=== PATIENT | female | born 1990 | race American Indian/Alaskan Native ===

== ENCOUNTER 2018-04-27 21:19 | Emergency (ER) | payer OTHER, MEDICAID ==
[2018-04-27] MEDS ORDERED: MOTRIN PO ONE (22:50)
[2018-04-27 23:58] LABS: HCG Qualitative,Urine Positive (Negative)
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
[2018-04-28 01:11] VITALS: BP 110/74
== END 2018-04-28 01:10 | disposition home or self-care (01) ==
LOC: ED 21:19
DX: O9A.219 Injury, poisoning and certain other consequences of external causes complicating pregnancy, unspecified trimester (principal); S39.012A Strain of muscle, fascia and tendon of lower back, initial encounter; Z3A.00 Weeks of gestation of pregnancy not specified; V89.2XXA Person injured in unspecified motor-vehicle accident, traffic, initial encounter; Y93.89 Activity, other specified; Y99.8 Other external cause status; Y92.410 Unspecified street and highway as the place of occurrence of the external cause
CPT/HCPCS: 81025; 99283

== ENCOUNTER 2018-05-08 19:51 | Emergency (ER) | payer MEDICAID, OTHER | END 2018-05-08 21:11 | disposition left against medical advice (07) | LOC: ED 19:51 | DX: M54.9 Dorsalgia, unspecified (principal); Z53.21 Procedure and treatment not carried out due to patient leaving prior to being seen by health care provider ==

== ENCOUNTER 2018-06-24 15:05 | Emergency (ER) | payer MEDICAID, OTHER ==
--- NOTE | 2018-06-24 16:48 | Emergency Department Report ---
ED Syncope HPI - General Chief Complaint: Syncope Stated Complaint: SYNCOPE Time Seen by Provider: 06/24/18 15:24 Source: patient, EMS - History of Present Illness Initial Comments: Ms. Mina is a 28 yo female who is currently 13 weeks who presents with syncopal episode. 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 She went to bathroom and had syncopal episode. Discovered by employee. She denies chest pain or headache. She just feels dizzy. BY 55 on sceen. Given oral glucose. +n/v at the scene given zofran Patient has been diagnosed with prediabetes. Receives care at [facility]. Timing/Prior Episodes: no prior history, single episode today Precipitating Factors: Positive: lightheadedness Context: standing Loss of Consciousness: brief (seconds) Current Symptoms: lightheadedness - Related Data Allergies/Adverse Reactions: Allergies No Known Allergies Allergy (Unverified 04/28/18 01:09) Home Medications: Ambulatory Orders Acetaminophen 500 mg PO Q8H PRN #30 tablet 04/28/18 Cyclobenzaprine [Flexeril] 10 mg PO QHS PRN #10 tablet 04/28/18 Metoclopramide [Reglan] 10 mg PO BID PRN #60 tab 04/28/18 21/Iron Fu/Folic Acid [ Complete Caplet] 1 each PO DAILY #30 tablet 04/28/18 ED Review of Systems ROS: Stated complaint: SYNCOPE Other details as noted in HPI Comment: All other systems reviewed and negative Constitutional: denies: fever, malaise Respiratory: denies: cough Cardiovascular: denies: chest pain ED Past Medical Hx - Past Medical History Previous Medical History?: No Additional medical history: miscarriage x 2 - Surgical History Additional Surgical History: c-sect X 2 - Social History Smoking Status: Never Smoker Substance Use Type: None - Medications Home Medications: Home Medications Medication Instructions Recorded Confirmed Last Taken Type Acetaminophen 500 mg PO Q8H PRN #30 tablet 04/28/18 Unknown Rx Cyclobenzaprine [Flexeril] 10 mg PO QHS PRN #10 tablet 04/28/18 Unknown Rx Metoclopramide [Reglan] 10 mg PO BID PRN #60 tab 04/28/18 Unknown Rx 21/Iron Fu/Folic Acid 1 each PO DAILY #30 tablet 04/28/18 Unknown Rx [ Complete Caplet] ED Physical Exam - General Limitations: No Limitations General appearance: alert, in no apparent distress - Head Head exam: Present: atraumatic, normocephalic - Eye Eye exam: Present: normal appearance - ENT ENT exam: Present: mucous membranes moist - Neck Neck exam: Present: normal inspection. Absent: tenderness, meningismus - Respiratory Respiratory exam: Present: normal lung sounds bilaterally. Absent: respiratory distress, wheezes, rales, rhonchi - Cardiovascular Cardiovascular Exam: Present: regular rate, normal rhythm, normal heart sounds. Absent: bradycardia, tachycardia, systolic murmur, diastolic murmur, rubs, gallop - GI/Abdominal GI/Abdominal exam: Present: soft, normal bowel sounds. Absent: distended, tenderness, guarding, rebound - Extremities Exam Extremities exam: Present: normal inspection - Back Exam Back exam: Present: normal inspection - Neurological Exam Neurological exam: Present: alert, oriented X3 - Psychiatric Psychiatric exam: Present: normal affect, normal mood - Skin Skin exam: Present: warm, dry, intact, normal color. Absent: rash ED Course Vital Signs 06/24/18 17:00 Respiratory 18 Rate O2 Sat by Pulse 100 Oximetry ED Medical Decision Making - Medical Decision Making Vasovagal syncope complicated by hypoglycemia and . Patient informed me that she is required to eat every 3-4 hours. Else, she becomes ill. She ate in the ED. Dc'd home. Do not suspect seizure, PE or arrhythmia. Patient only had lightheadedness. Critical care attestation.: If time is entered above; I have spent that time in minutes in the direct care of this critically ill patient, excluding procedure time. ED Disposition Clinical Impression: Vasovagal syncope, Hypoglycemia, Disposition: DC-01 TO HOME OR SELFCARE Is pt being admited?: No Does the pt Need Aspirin: No Condition: Stable Instructions: Syncope (ED), Non-diabetic Hypoglycemia (ED) Time of Disposition: 19:10
[2018-06-24] MEDS ORDERED: D50W (25GM) Syringe IV ONE (17:00)
[2018-06-24 19:30] VITALS: BP 105/54
== END 2018-06-24 19:29 | disposition home or self-care (01) ==
LOC: ED 15:05
DX: O99.281 Endocrine, nutritional and metabolic diseases complicating pregnancy, first trimester (principal); E16.2 Hypoglycemia, unspecified; R55 Syncope and collapse; Z3A.13 13 weeks gestation of pregnancy
CPT/HCPCS: 82962; 96374

== ENCOUNTER 2018-07-03 09:56 | Emergency (ER) | payer MEDICAID ==
[2018-07-03 11:06] LABS: Basophils % (Auto) 0.3 % (0.0-1.8); Eosinophils # (Auto) 0.1 K/mm3 (0.0-0.4); Eosinophils % (Auto) 0.8 % (0.0-4.3); Lymphocytes % (Auto) 19.7 % (13.4-35.0); Mean Corpuscular HGB Conc 33 % (30-34); Mean Corpuscular Hemoglobin 26 pg (28-32); Mean Corpuscular Volume 80 fl (79-97); Monocytes # (Auto) 1.3 K/mm3 (0.0-0.8); Monocytes % (Auto) 12.9 % (0.0-7.3); Platelet Count 320 K/mm3 (140-440); Red Blood Count 4.62 M/mm3 (3.65-5.03); Red Cell Distribution Width 16.7 % (13.2-15.2)
[2018-07-03 11:16] LABS: INR 0.96 (0.87-1.13)
[2018-07-03 11:22] LABS: BUN/Creatinine Ratio 12; Blood Urea Nitrogen 6 mg/dL (7-17); Hemolysis Index 8
[2018-07-03] MEDS ORDERED: K-DUR PO ONE (11:26)
[2018-07-03] MEDS ORDERED: ZOFRAN IV ONE (11:26)
[2018-07-03] MEDS ORDERED: D5NS 1,000 ML IV SCH ×2 (12:00→15:00)
--- NOTE | 2018-07-03 15:22 | Cat Scan Report ---
CT HEAD WITHOUT CONTRAST: HISTORY: Headache, syncope, generalized weakness. TECHNIQUE: Sequential 2.5mm CT images. COMPARISON: none. FINDINGS: Cerebral Parenchyma: Within normal limits. Cerebellum: Within normal limits. Brainstem: Within normal limits. Ventricles: Normal. Sella: Normal. Extra-axial spaces: Normal. Basal Cisterns: Normal. Intracranial Hemorrhage: None. Midline Shift: None. Calvarium: Normal. Sinuses: Normal. Mastoid Air Cells: Normal. Visualized Orbits: Normal. IMPRESSION: Cranial CT scan within normal limits.
--- NOTE | 2018-07-03 15:24 | Cat Scan Report ---
CTA CHEST: HISTORY: Headache, syncope, generalized weakness, palpitations. COMPARISON: none. TECHNIQUE: Helical CT in 1.25mm intervals following IV contrast. Pulmonary embolus protocol. Sagittal and coronal reformatted images. Rotational MIP images. FINDINGS: Contrast bolus is satisfactory. No pulmonary embolus is identified. Thyroid gland: Normal. Tracheobronchial tree: Normal. Esophagus: Normal. Heart: Normal. Pericardium: Normal. Mediastinum: Normal. Lung Martin: normal. Pleural Spaces: Normal. Musculoskeletal: Normal. IMPRESSION: No evidence for pulmonary embolus. Unremarkable CT chest with contrast.
--- NOTE | 2018-07-03 16:18 | Emergency Department Report ---
ED Syncope HPI - General Chief Complaint: Syncope Stated Complaint: SYNCOPY Time Seen by Provider: 07/03/18 10:47 Source: patient Exam Limitations: no limitations - History of Present Illness Initial Comments: 28-year-old female currently 16 weeks with a past medical history of hypertension (during not currently on meds) gestational diabetes (not currently with this ) presents to the hospital complains of syncopal episode. Patient was here 3 days ago for the same. Patient was at work when episode happened. She drives a special needs van. She was going into the office tell her boss that she didn't feel well. She was lightheaded, had blurred vision, hot all over, vomited once, then had a syncopal episode. She says she had preceding palpitations and her hands were shaking. She assumed her sugar was dropping and ate [employer] without improvement. She states she has been eating small meals throughout the day and drinking fluids. She currently complains of a frontal moderate headache. She denies chest pain, shortness of breath, leg edema, calf tenderness. 3 days ago syncopal episode presumed to be due to hypoglycemia. PT states she is RH neg and denies any current vag bleeding. - Related Data Allergies/Adverse Reactions: Allergies No Known Allergies Allergy (Unverified 04/28/18 01:09) Home Medications: Ambulatory Orders Acetaminophen 500 mg PO Q8H PRN #30 tablet 04/28/18 Cyclobenzaprine [Flexeril] 10 mg PO QHS PRN #10 tablet 04/28/18 Metoclopramide [Reglan] 10 mg PO BID PRN #60 tab 04/28/18 21/Iron Fu/Folic Acid [ Complete Caplet] 1 each PO DAILY #30 tablet 04/28/18 Meclizine [Antivert] 25 mg PO TID PRN #30 tablet 07/03/18 ED Review of Systems ROS: Stated complaint: SYNCOPY Other details as noted in HPI Comment: All other systems reviewed and negative ED Past Medical Hx - Past Medical History Previous Medical History?: Yes Hx Hypertension: Yes Hx Diabetes: Yes (gestational) Additional medical history: miscarriage x 2 - Surgical History Additional Surgical History: c-sect X 2 - Social History Smoking Status: Never Smoker - Medications Home Medications: Home Medications Medication Instructions Recorded Confirmed Last Taken Type Acetaminophen 500 mg PO Q8H PRN #30 tablet 04/28/18 Unknown Rx Cyclobenzaprine [Flexeril] 10 mg PO QHS PRN #10 tablet 04/28/18 Unknown Rx Metoclopramide [Reglan] 10 mg PO BID PRN #60 tab 04/28/18 Unknown Rx 21/Iron Fu/Folic Acid 1 each PO DAILY #30 tablet 04/28/18 Unknown Rx [ Complete Caplet] Meclizine [Antivert] 25 mg PO TID PRN #30 tablet 07/03/18 Unknown Rx ED Physical Exam - General Limitations: Other - Other Other exam information: General: No limitations, patient is alert in no acute distress Head exam: Atraumatic, normocephalic Eyes exam: Normal appearance, pupils equal reactive to light, extraocular movements intact ENT: Moist mucous membrane, normal oropharynx Neck exam: Normal inspection, full range of motion, no meningismus nontender Respiratory exam: Clear to auscultation bilateral, no wheezes, rales, crackles Cardiovascular: Normal rate and rhythm, normal heart sounds Abdomen: Soft, nondistended, and nontender, with normal bowel sounds, no rebound, or guarding Extremity: Full range of motion normal inspection no deformity, no calf tenderness or edema Back: Normal Inspection, full range of motion, no tenderness Neurologic: Alert, oriented x3, cranial nerves intact, no motor or sensory deficit Psychiatric: normal affect, normal mood Skin: Warm, dry, intact ED Course Vital Signs 07/03/18 07/03/18 10:07 19:05 Temperature 98 F 98.9 F Pulse Rate 109 H 80 Respiratory 18 18 Rate Blood Pressure 124/74 Blood Pressure 98/54 [Left] O2 Sat by Pulse 100 98 Oximetry - Reevaluation(s) Reevaluation #1: 07/03/18 18:58 Patient complained of vertigo symptoms during ED stay and states he has had them for several days. She had episode of vertigo and vomiting while lying supine in CAT scan. Symptoms exacerbated when lying flat and moving her eyes and head in certain positions. Symptoms improved with meclizine. ED Medical Decision Making - Lab Data Result diagrams: 07/03/18 10:52 07/03/18 10:52 Lab Results 07/03/18 07/03/18 07/03/18 Range/Units 10:52 10:52 10:52 WBC 10.4 (4.5-11.0) K/mm3 RBC 4.62 (3.65-5.03) M/mm3 Hgb 12.0 (10.1-14.3) gm/dl Hct 37.0 (30.3-42.9) % MCV 80 (79-97) fl MCH 26 L (28-32) pg MCHC 33 (30-34) % RDW 16.7 H (13.2-15.2) % Plt Count 320 (140-440) K/mm3 Lymph % (Auto) 19.7 (13.4-35.0) % [place] % (Auto) 12.9 H (0.0-7.3) % Eos % (Auto) 0.8 (0.0-4.3) % Baso % (Auto) 0.3 (0.0-1.8) % Lymph # 2.0 (1.2-5.4) K/mm3 Hickman # 1.3 H (0.0-0.8) K/mm3 Eos # 0.1 (0.0-0.4) K/mm3 Baso # 0.0 (0.0-0.1) K/mm3 Seg Neutrophils % 66.3 (40.0-70.0) % Seg Neutrophils # 6.9 (1.8-7.7) K/mm3 PT 13.3 (12.2-14.9) Sec. INR 0.96 (0.87-1.13) D-Dimer 448.87 H (0-234) ng/mlDDU Sodium 136 L (137-145) mmol/L Potassium 3.5 L (3.6-5.0) mmol/L Chloride 102.9 (98-107) mmol/L Carbon Dioxide 21 L (22-30) mmol/L Anion Gap 16 mmol/L BUN 6 L (7-17) mg/dL Creatinine 0.5 L (0.7-1.2) mg/dL Estimated GFR > 60 ml/min BUN/Creatinine Ratio 12 % Glucose 90 (65-100) mg/dL Calcium 9.0 (8.4-10.2) mg/dL Urine Color (Yellow) Urine Turbidity (Clear) Urine pH (5.0-7.0) Ur Specific [place] (1.003-1.030) Urine Protein (Negative) mg/dL Urine Glucose (UA) (Negative) mg/dL Urine Ketones (Negative) mg/dL Urine Blood (Negative) Urine Nitrite (Negative) Urine Bilirubin (Negative) Urine Urobilinogen (<2.0) mg/dL Ur Leukocyte Esterase (Negative) Urine WBC (Auto) (0.0-6.0) /HPF Urine RBC (Auto) (0.0-6.0) /HPF U Epithel Cells (Auto) (0-13.0) /HPF Urine Mucus /HPF 07/03/18 Range/Units 16:05 WBC (4.5-11.0) K/mm3 RBC (3.65-5.03) M/mm3 Hgb (10.1-14.3) gm/dl Hct (30.3-42.9) % MCV (79-97) fl MCH (28-32) pg MCHC (30-34) % RDW (13.2-15.2) % Plt Count (140-440) K/mm3 Lymph % (Auto) (13.4-35.0) % [place] % (Auto) (0.0-7.3) % Eos % (Auto) (0.0-4.3) % Baso % (Auto) (0.0-1.8) % Lymph # (1.2-5.4) K/mm3 [place] # (0.0-0.8) K/mm3 Eos # (0.0-0.4) K/mm3 Baso # (0.0-0.1) K/mm3 Seg Neutrophils % (40.0-70.0) % Seg Neutrophils # (1.8-7.7) K/mm3 PT (12.2-14.9) Sec. INR (0.87-1.13) D-Dimer (0-234) ng/mlDDU Sodium (137-145) mmol/L Potassium (3.6-5.0) mmol/L Chloride (98-107) mmol/L Carbon Dioxide (22-30) mmol/L Anion Gap mmol/L BUN (7-17) mg/dL Creatinine (0.7-1.2) mg/dL Estimated GFR ml/min BUN/Creatinine Ratio % Glucose (65-100) mg/dL Calcium (8.4-10.2) mg/dL Urine Color Yellow (Yellow) Urine Turbidity Slightly-cloudy (Clear) Urine pH 6.0 (5.0-7.0) Ur Specific [place] 1.054 H (1.003-1.030) Urine Protein <15 mg/dl (Negative) mg/dL Urine Glucose (UA) 150 (Negative) mg/dL Urine Ketones 20 (Negative) mg/dL Urine Blood Neg (Negative) Urine Nitrite Neg (Negative) Urine Bilirubin Neg (Negative) Urine Urobilinogen < 2.0 (<2.0) mg/dL Ur Leukocyte Esterase Neg (Negative) Urine WBC (Auto) 3.0 (0.0-6.0) /HPF Urine RBC (Auto) 3.0 (0.0-6.0) /HPF U Epithel Cells (Auto) 8.0 (0-13.0) /HPF Urine Mucus 1+ /HPF - EKG Data -: EKG Interpreted by [place] EKG shows normal: sinus rhythm, axis (qrs 17), QRS complexes (qrsd 81), ST-T waves (no stemi) Rate: normal (82d) - EKG Data When compared to previous EKG there are: previous EKG unavailable - Radiology Data Radiology results: report reviewed A CHEST: HISTORY: Headache, syncope, generalized weakness, palpitations. COMPARISON: none. TECHNIQUE: Helical CT in 1.25mm intervals following IV contrast. Pulmonary embolus protocol. Sagittal and coronal reformatted images. Rotational MIP images. FINDINGS: Contrast bolus is satisfactory. No pulmonary embolus is identified. Thyroid gland: Normal. Tracheobronchial tree: Normal. Esophagus: Normal. Heart: Normal. Pericardium: Normal. Mediastinum: Normal. Lung Martin: normal. Pleural Spaces: Normal. Musculoskeletal: Normal. IMPRESSION: No evidence for pulmonary embolus. Unremarkable CT chest with contrast CT HEAD WITHOUT CONTRAST: HISTORY: Headache, syncope, generalized weakness. TECHNIQUE: Sequential 2.5mm CT images. COMPARISON: none. FINDINGS: Cerebral Parenchyma: Within normal limits. Cerebellum: Within normal limits. Brainstem: Within normal limits. Ventricles: Normal. Sella: Normal. Extra-axial spaces: Normal. Basal Cisterns: Normal. Intracranial Hemorrhage: None. Midline Shift: None. Calvarium: Normal. Sinuses: Normal. Mastoid Air Cells: Normal. Visualized Orbits: Normal. IMPRESSION: Cranial CT scan within normal limits. - Medical Decision Making Syncope likely secondary to dehydration given a high specific gravity on urine and elevated ketones. Treated with 2 L of D5NS with improvement. Patient also tolerated food intake. Patient has mild hypokalemia and potassium was provided. She also reports that the vertigo which improved with meclizine. CT head and CT and she was chest negative. EKG and other labs unremarkable on patient be discharged home with meds and follow up - Differential Diagnosis hypoglycemia, vasovagal, anemia, PE, ICH, PE Critical Care Time: No Critical care attestation.: If time is entered above; I have spent that time in minutes in the direct care of this critically ill patient, excluding procedure time. ED Disposition Clinical Impression: Syncope, Dehydration, Vertigo, Disposition: - TO HOME OR SELFCARE Is pt being admited?: No Does the pt Need Aspirin: No Condition: Stable Instructions: Dehydration (ED), Vertigo (ED), Syncope (ED) Additional Instructions: Take the medication as prescribed. Follow up with your doctor. Return if symptoms worsen as indicated by your discharge instructions Prescriptions: Meclizine [Antivert] 25 mg PO TID PRN #30 tablet PRN Reason: Vertigo Referrals: PRIMARY CARE,MD [Primary Care Provider] - 3-5 Days your, standpipe tender [Other] - 3-5 Days Time of Disposition: 19:14
[2018-07-03 16:20] LABS: Bilirubin,Urine NEG (Negative); Blood,Urine NEG (Negative); Color,Urine Yellow (Yellow); Mucus,Urine 1+ /HPF; Protein,Urine <15 mg/dL mg/dL (Negative); Urobilinogen,Urine < 2.0 mg/dL (<2.0)
[2018-07-03] MEDS ORDERED: ANTIVERT PO ONE (18:06)
[2018-07-03 19:06] VITALS: BP 98/54
== END 2018-07-03 19:29 | disposition home or self-care (01) ==
LOC: ED 09:56
DX: O26.892 Other specified pregnancy related conditions, second trimester (principal); E86.0 Dehydration; O16.2 Unspecified maternal hypertension, second trimester; E11.9 Type 2 diabetes mellitus without complications; Z3A.16 16 weeks gestation of pregnancy
CPT/HCPCS: 36415; 70450; 71275; 80048; 81001; 85025; 85379; 85610; 93005; 93010; 96361; 96374; 99284; J2405; J7042; Q9967; 96365; 96366; 96375